=== PATIENT | male | born 1955 | race Caucasian/White ===

== ENCOUNTER → 2020-06-20 14:50 | Outpatient (CLI) | payer OTHER, SELFPAY ==
[2020-06-20 15:59] LABS: BUN Creatinine Ratio 13.4 (6-22); Blood Urea Nitrogen 16 mg/dL (9-20); Calcium 9.7 mg/dL (8.4-10.2); Carbon Dioxide 26 mmol/L (22-32); Chloride 106 mmol/L (98-107); Estimated Glomerular Filt Rate > 60.0 mL/min (>60); Glucose 92 mg/dL (80-110); HEMOLYSIS < 15 (0-50); Potassium 4.4 mmol/L (3.4-5.1); Sodium 140 mmol/L (137-145)
== END ==
PROVIDERS: Family Provider Family Medicine; PCP Internal Medicine; Referring Provider Internal Medicine; Visit Provider Internal Medicine
DX: I10 Essential (primary) hypertension (principal)
CPT/HCPCS: 36415; 80048

== ENCOUNTER → 2020-06-23 07:43 | Outpatient (CLI) | payer OTHER, SELFPAY ==
--- NOTE | 2020-06-23 07:44 | DI.MRI.S_ITS ---
PROCEDURE: MR STROKE Pre- and post-contrast brain MRI, non-contrast brain MR angiogram, pre- and postcontrast neck MR angiogram INDICATIONS: Evaluate and r/o vascular cause of severe dizziness TECHNIQUE: Brain: Noncontrast axial T1 spin echo, axial T2 fast spin echo, sagittal and axial FLAIR, coronal T2 fast spin echo, axial gradient echo, axial diffusion and ADC through the brain. After the administration of contrast, axial 3D VIBE of the cranial vasculature and brain. Brain MRA: Non-contrast 3-D time of flight MR angiogram, with multiple mhkqkce-cahjwprbd-twhystssjg (MIP) reformats performed. Neck MRA: Axial and sagittal TruFISP through the neck. Coronal dynamic MR angiogram during administration of contrast in the arterial and venous phases, with 3-dimenstional papinfi-hrifaendc-zvgswasfrq (MIP) reformats constructed from subtraction images. COMPARISON: None. FINDINGS: Image quality: Excellent. BRAIN: CSF spaces: Ventricles are normal in size and shape. Basal cisterns are patent. No extra-axial fluid collections. Brain: No intracranial bleeds or mass effects. Mild diffuse cerebral volume loss. Mild degree of patchy high FLAIR signal within the periventricular and subcortical white matter. Aburto-white matter interface is normal. Diffusion weighted images show no acute ischemic insults. Brainstem appears normal. Normal intravascular flow voids are present. No abnormal intracranial enhancement. Skull and face: Calvarial marrow signal is normal. Orbits appear normal. Sinuses: Mild bilateral ethmoid and maxillary sinus mucosal thickening. BRAIN MR ANGIOGRAM: Anterior circulation: Intracranial internal carotid arteries are normal in size and enhancement. The flow within the paired anterior cerebral arteries is normal and symmetric. The flow within the middle cerebral arteries is normal and symmetric. The anterior communicating artery is seen. No stenoses, occlusions, or aneurysms. Posterior circulation: The visualized portions of the vertebral arteries demonstrate normal caliber. The left vertebral artery terminates in a posterior inferior cerebellar artery. Basilar artery is small in caliber but patent.. origin of the right posterior cerebral artery. Near origin of the left posterior cerebral artery. The flow within the posterior cerebral arteries is normal and symmetric. No stenoses, occlusions, or aneurysms. NECK MR ANGIOGRAM: Carotids: Great vessels demonstrate a conventional anatomy as they arise from the aortic arch. The origins of the common carotid arteries appear patent. The calibers and courses of both common carotid arteries are normal. The bifurcation regions appear normal bilaterally. The internal carotid arteries demonstrate normal course and caliber. Posterior circulation: The origins of the vertebral arteries appear patent. More superior portions of both vertebral arteries demonstrate normal course and caliber. Left vertebral artery terminates in a posterior inferior cerebellar artery. Miscellaneous: Subclavian arteries appear patent. Pre-contrast images through the neck show no soft tissue abnormalities. IMPRESSION: BRAIN MRI: 1. Mild volume loss and minimal small vessel ischemic disease. 2. No acute process. No recent infarct. 3. Sinus disease. BRAIN MR ANGIOGRAM: Negative cerebral MR angiography. NECK MR ANGIOGRAM: 1. No internal carotid artery stenosis bilaterally. 2. Patent bilateral vertebral arteries. Dictated by: Lj Coto M.D. on 06/23/2020 at 9:59 Approved by: Lj Coto M.D. on 06/23/2020 at 10:05
== END ==
PROVIDERS: Family Provider Family Medicine; PCP Internal Medicine; Referring Provider Internal Medicine; Visit Provider Internal Medicine
DX: R42 Dizziness and giddiness (principal); I10 Essential (primary) hypertension; E78.5 Hyperlipidemia, unspecified; J32.9 Chronic sinusitis, unspecified
CPT/HCPCS: 70548; 70553; A9579

== ENCOUNTER → 2021-06-08 09:49 | Outpatient (CLI) | payer OTHER, SELFPAY ==
[2021-06-08 10:43] LABS: Hemoglobin A1C% w Est Avg Glu 5.6 % (4.0-6.0)
[2021-06-08 10:48] LABS: Alanine Aminotransferase 25 IU/L (<50); Aspartate Aminotransferase 28 IU/L (17-59)
[2021-06-08 10:50] LABS: Alanine Aminotransferase 25 IU/L (<50); Albumin 4.3 g/dL (3.5-5.0); Albumin Globulin Ratio 1.5 (1.0-2.8); Alkaline Phosphatase 53 U/L (38-126); Aspartate Aminotransferase 32 IU/L (17-59); BUN Creatinine Ratio 11.8 (6-22); Bilirubin Total 1.1 mg/dL (0.2-1.3); Blood Urea Nitrogen 14 mg/dL (9-20); Calcium 9.8 mg/dL (8.4-10.2); Carbon Dioxide 27 mmol/L (22-32); Chloride 109 mmol/L (98-107); Cholesterol 189 mg/dL (140-199); Estimated Glomerular Filt Rate > 60.0 mL/min (>60); Globulin 2.8 g/dL (1.7-4.1); Glucose 107 mg/dL (80-110); HDL Cholesterol 46 mg/dL (40-60); Potassium 4.9 mmol/L (3.4-5.1); Sodium 140 mmol/L (137-145); Total Protein 7.1 g/dL (6.3-8.2); Triglycerides 162 mg/dL (35-150); Uric Acid 6.9 mg/dL (3.5-8.5)
[2021-06-08 10:51] LABS: HEMOLYSIS < 15 (0-50); LDL Cholesterol Calculated 111 mg/dL (<100)
[2021-06-08 11:21] LABS: Prostate Specific Antigen Scrn 1.11 ng/mL (0.1-4.0)
== END ==
PROVIDERS: PCP Internal Medicine; Referring Provider Internal Medicine; Visit Provider Internal Medicine
DX: E78.5 Hyperlipidemia, unspecified (principal); I10 Essential (primary) hypertension; N18.30 Chronic kidney disease, stage 3 unspecified; N40.1 Benign prostatic hyperplasia with lower urinary tract symptoms; Z12.5 Encounter for screening for malignant neoplasm of prostate; Z83.3 Family history of diabetes mellitus; Z13.89 Encounter for screening for other disorder
CPT/HCPCS: 80053; 80061; 83036; 84450; 84460; 84550; G0103

== ENCOUNTER → 2023-10-22 13:15 | Outpatient (CLI) | payer OTHER, SELFPAY ==
--- NOTE | 2023-10-22 13:17 | DI.US.S_ITS ---
PROCEDURE: US PERIPH VENOUS LOW EXTREM LT INDICATIONS: venous US, assess for DVT TECHNIQUE: Real-time imaging, as well as color and pulse Doppler interrogation, were performed of the lower extremity deep veins from the inguinal ligament to the popliteal fossa, with documentation of the visualized calf veins. COMPARISON: None. FINDINGS: The common femoral, femoral, popliteal, and the visualized calf veins are normally compressible, and free of intraluminal thrombus. Color and pulse Doppler demonstrate normal phasic intraluminal flow. There is normal augmentation response to distal compression maneuver. IMPRESSION: No findings of lower extremity deep venous thrombosis. Dictated by: Tristen De Los Santos M.D. on 10/22/2023 at 13:23 Approved by: Tristen De Los Santos M.D. on 10/22/2023 at 13:23
== END ==
PROVIDERS: Referring Provider Family Medicine; Visit Provider Family Medicine
DX: R25.2 Cramp and spasm (principal)
CPT/HCPCS: 93971

== ENCOUNTER → 2024-05-19 15:56 | Outpatient (CLI) | payer OTHER, SELFPAY ==
--- NOTE | 2024-05-21 15:07 | DIET.OUTPTC ---
Dietary Outpatient Consultation Note Consultation Date: 05/21/2024 Assessment: 69 y M referred to dietitian for obesity, hyperlipidemia and pre-DM. [place] reports having lost weight 6 yrs ago using the Atkins diet and going to the gym most days. Would like to start Atkins diet again now that he is retired. Finds it most helpful to journal food intake and have supportive people to hold him accountable. Pt is starting a low carb diet again with complete elimination of all refined sugars, increase in protein intake, and 1 hr and 15 min at gym 5x/wk. Reports high uric acid was previously reduced when he lost weight on Atkins. Diet recall: B-x L-sandwich on whole wheat w/ turkey/salami + fruit S- cookies, donuts, or candy bar D-Chicken/fish/ham/steak, fried rice S-ice cream or popcorn Water 64 oz Physical activity- e-bike, walks Ht: 5 ft 11 in Wt: 236 lb BMI: 32.9 Nutrition Diagnosis: Altered nutrition related lab values r/t energy dense snack choices, previous busy lifestyle aeb 6.0% A1c Interventions: 1. Educ on a balanced low-carb diet -Educ on fiber, fiber needs and sources, saturated fat and sources, protein needs, and avoiding excessive protein intake -Discussed sustainability of diet shelter, encouraged balance over over-restricting 2. Provided educ on high and moderate purine foods r/t gout Goals: 1. Have breakfast 2. 30 g fiber (for age) throughout day 3. Limit saturated fat sources 3. Recc limiting high purine foods and avoiding excessive intake of moderate purine foods Monitoring/Evaluations: f/u in 6 months Electronically Signed by: Sloane Terry 05/21/24 15:07 Clinical Dietitian [address] [id number]
== END ==
PROVIDERS: PCP Family Medicine; Referring Provider Family Medicine
DX: E66.9 Obesity, unspecified (principal); E78.5 Hyperlipidemia, unspecified; R73.03 Prediabetes; Z71.3 Dietary counseling and surveillance; Z68.32 Body mass index [BMI] 32.0-32.9, adult
CPT/HCPCS: 97802

== ENCOUNTER → 2024-11-26 11:28 | Outpatient (CLI) | payer OTHER, SELFPAY ==
--- NOTE | 2024-11-26 11:30 | DI.RAD.S_ITS ---
PROCEDURE: XR CHEST 2V INDICATIONS: R/O PNA TECHNIQUE: 2 views of the chest were acquired. COMPARISON: None. FINDINGS: Surgical changes and devices: None. Lungs and pleura: Lungs are clear. No pleural effusions or pneumothorax. Mediastinum: Mediastinal contours are normal. Heart size is normal. Bones and chest wall: No suspicious bony abnormalities. Soft tissues appear unremarkable. Moderate degenerative changes are noted throughout the visualized portions of the thoracic spine. IMPRESSION: No acute cardiopulmonary abnormality is seen. Dictated by: Donaldo Cardenas M.D. on 11/27/2024 at 11:54 Approved by: Donaldo Cardenas M.D. on 11/27/2024 at 11:57
== END ==
PROVIDERS: PCP Family Medicine; Referring Provider Nurse Practitioner Family; Visit Provider Nurse Practitioner Family
DX: R05.9 Cough, unspecified (principal)
CPT/HCPCS: 71046

== ENCOUNTER → 2025-06-01 14:28 | Outpatient (CLI) | payer OTHER, SELFPAY ==
--- NOTE | 2025-06-01 14:40 | EKG_ITS ---
[facility] [address] [place] [id number] Test Date: 2025-06-01 Pat Name: [place] Perdomo Department: [facility] Room: Gender: Male Snow Remover: NABILA : 1955 Requested By: Order Number: [id number] Reading MD: Serge Salamanca MD Measurements Intervals Siler Rate: 53 P: 28 VT: 182 QRS: -10 QRSD: 86 T: -2 QT: 418 QTc: 392 Interpretive Statements Sinus bradycardia Electronically Signed On 06-02-2025 7:39:20 PDT by Serge Salamanca MD
== END ==
PROVIDERS: PCP Family Medicine; Referring Provider Family Medicine; Visit Provider Family Medicine
DX: I48.91 Unspecified atrial fibrillation (principal); R00.1 Bradycardia, unspecified
CPT/HCPCS: 93005